=== PATIENT | male | born 1970 | race Caucasian/White ===

== ENCOUNTER 2017-08-30 09:21 | Inpatient (IN) | payer SELFPAY ==
[2017-08-30] MEDS ORDERED: Zolpidem Tartrate 5 MG TAB PO PRN (09:38)
[2017-08-30] MEDS ORDERED: Loperamide HCl 2 MG CAP PO PRN (09:38)
[2017-08-30] MEDS ORDERED: hydrALAZINE 20 MG/ML VIAL SLOW IVP PRN (09:38)
[2017-08-30] MEDS ORDERED: Milk Of Magnesia 30 ML UDCUP PO PRN (09:38)
[2017-08-30] MEDS ORDERED: Eucerin (Mineral Oil/Petrolatum,White) 30 gm Jar TOP PRN (09:38)
[2017-08-30] MEDS ORDERED: Sodium Chloride 0.65% Nasal 44 ML BOT EA NARE PRN (09:38)
[2017-08-30] MEDS ORDERED: Chloraseptic Spray 180 ml Bottle PO PRN (09:38)
[2017-08-30] MEDS ORDERED: Senokot 8.6 MG TAB PO PRN (09:38)
[2017-08-30] MEDS ORDERED: Diabetic Tussin 200 MG/10 ML UDCUP PO PRN (09:38)
[2017-08-30] MEDS ORDERED: Acetaminophen 325 MG TAB PO PRN (09:38)
[2017-08-30] MEDS ORDERED: Artificial Tears 18 DROP/0.9 ML EA EYE PRN (09:38)
[2017-08-30] MEDS ORDERED: Loratadine 10 MG TAB PO PRN (09:38)
[2017-08-30 09:45] VITALS: BMI 18.7
[2017-08-30] MEDS: Morphine 4 MG/ML VIAL SLOW IVP PRN ×5 (10:18→23:06)
[2017-08-30] MEDS: Sodium Chloride 0.9% 1,000 ML IV SCH ×2 (10:19→16:50)
[2017-08-30] MEDS ORDERED: Enoxaparin Sodium 40 MG/0.4 ML SYRINGE SC SCH (11:00)
[2017-08-30] MEDS ORDERED: Famotidine/PF 20 mg/2ml Vial SLOW IVP SCH (11:00)
[2017-08-30] MEDS: Ondansetron HCl/PF 4 MG/2 ML Vial IVP PRN ×2 (13:33→19:53)
--- NOTE | 2017-08-30 13:50 | HP ---
PRIMARY CARE PHYSICIAN: Dr. Berlin Cooper REASON FOR ADMISSION: Acute pancreatitis. HISTORY OF PRESENT ILLNESS: A 47-year-old male who has a history of alcoholism who was initially evaluated at [facility] for abdominal pain which was in the epigastric region radiating to back, aggravated after food, associated with nausea and vomiting. The patient reports that he has history of alcoholism. He drinks alcohol every day. He had several times pancreatitis in the past requiring admissions in different hospital. His most recent hospitalization was at [facility] about 2 weeks ago and per patient he stayed there for 1 week. He was having pain on the day of discharge, but despite that they discharged him home. He was discharged to inpatient rehabilitation for alcohol program. The patient was not drinking alcohol for about 2 weeks and despite that after eating his abdominal pain was getting worse and that is why he was locally evaluated at [facility]. At [facility], routine blood tests showed leukocytosis and elevated amylase and lipase. The patient's chest x-ray was normal. The patient was directly admitted from [facility] to our hospital for further treatment. REVIEW OF SYSTEMS: The following complete review of systems was negative, unless otherwise mentioned in the HPI or below: Constitutional: Weight loss or gain, ability to conduct usual activities. Skin: Rash, itching. Eyes: Double vision, pain. ENT/Mouth: Nose bleeding, neck stiffness, pain, tenderness. Cardiovascular: Palpitations, dyspnea on exertion, orthopnea. Respiratory: Shortness of breath, wheezing, cough, hemoptysis, fever or night sweats. Gastrointestinal: Poor appetite, abdominal pain, heartburn, nausea, vomiting, constipation, or diarrhea. Genitourinary: Urgency, frequency, dysuria, nocturia. Musculoskeletal: Pain, swelling. Neurologic/Psychiatric: Anxiety, depression. Allergy/Immunologic: Skin rash, bleeding tendency. Please see my HPI for pertinent positives and negatives. All other review of systems were reviewed and negative except as mentioned in the HPI. PAST MEDICAL HISTORY: History of chronic pancreatitis, multiple episodes of pancreatitis required multiple hospitalizations in the past, alcoholism. PAST SURGICAL HISTORY: Left wrist fusion. PAST PSYCHIATRIC HISTORY: Reviewed and negative. SOCIAL HISTORY: The patient has a history of alcoholism, currently he was in alcohol rehabilitation program. He did not drink alcohol for the last 2 weeks, but otherwise he used to drink almost every day, variable amount. He denies any smoking. He denies any other illicit drug abuse. FAMILY HISTORY: No strong family history of premature coronary artery disease, stroke or cancer. ALLERGIES: No known drug allergies. CURRENT HOME MEDICATIONS: The patient does not have any prescribed or non- prescribed medication with him at this point. EMERGENCY ROOM COURSE: The patient was given morphine 6 mg, Toradol 30 mg, Zofran 8 mg at [facility]. PHYSICAL EXAMINATION: VITAL SIGNS: Currently, blood pressure 110/83, pulse 94, respiratory rate 20, temperature 97.0, saturation 100% on room air, weight 54.4 kilograms. GENERAL: The patient is currently alert, awake, no obvious acute distress. HEENT: Head is normocephalic, atraumatic. Eyes: Pupils round, reactive to light. Extraocular muscle intact. ENT: Oropharynx within normal limits. Moist mucous membranes. No oral lesions. No pharyngeal erythema, no exudates. NECK: Supple, no JVD, no thyromegaly, no carotid bruit, no jugular venous distention. LUNGS: Clear to auscultation without any rhonchi or rales. CARDIAC: S1, S2 regular. No murmur, no gallop, no rub. ABDOMEN: Epigastric tenderness, no organomegaly, no mass, no suprapubic tenderness. BACK: Unremarkable, no CVA tenderness. EXTREMITIES: Upper extremity passive movement of all joints are normal. Lower extremities: No edema. Good peripheral pulsation. SKIN: No skin rash. HEMATOLOGICAL: No lymphadenopathy. PSYCHIATRIC: Normal affect. NEUROLOGIC: Nonfocal examination. SIGNIFICANT LABS: Chest x-ray based on my review, no acute cardiopulmonary process. CBC: WBC 14.5, hemoglobin 13.8, platelet 511, MCV 101. BMP; sodium 139, potassium 4.3, chloride 103, carbon dioxide 23, anion gap 17, BUN 10, creatinine 0.76, glucose 110, calcium 9.1. LFTs: AST 15, ALT 9, alkaline phosphatase 61, albumin 3.7. Lipase 2539. Amylase 1219. Urinalysis unremarkable, though bacteria plus, bilirubin small, and protein 30. ASSESSMENT AND PLAN: 1. Acute alcoholic pancreatitis. At this point, the patient has elevated amylase and lipase, and abdominal pain. The patient recently was hospitalized at [facility] and he was treated for acute pancreatitis there. Now, his symptoms getting worse with food each time. I am suspecting that this patient might have underlying chronic pancreatitis. We will get CT of the abdomen and pelvis with contrast for further evaluation and will check CRP. We will keep him n.p.o. and continue with IV fluid. We will control his pain with morphine 4 mg every 3 hours. We will check amylase and lipase, phosphorus, magnesium tomorrow. Incentive spirometry advised. Upon improvement we will start clear liquid diet and advance diet as tolerated. This patient may need a pancreatic enzyme supplements in case if he has chronic pancreatitis. 2. Macrocytic anemia due to alcoholism. The patient will be given folic acid, vitamin B12 and thiamine therapy while in hospital. 3. History of alcoholism. Currently the patient is on alcohol rehabilitation program, and he has not drink alcohol for 2 weeks. I counseled him to continue not to drink alcohol any more. 4. Deep venous thrombosis prophylaxis. Lovenox 40 mg subcutaneously daily. 5. Gastrointestinal prophylaxis. Pepcid 20 mg IV b.i.d. 6. Code status: The patient is FULL CODE. The patient does not have any so surrogate decision maker. DISPOSITION PLAN: Based on clinical course. We are expecting patient's stay in hospital more than 2 midnights. Plan of care discussed with the patient in detail. ASHLEYD
--- NOTE | 2017-08-30 17:12 | CT ---
CT OF THE ABDOMEN AND PELVIS WITH IV CONTRAST 08/30/17 INDICATION: History of pancreatitis. COMPARISON: CT thorax dated 02/29/12. FINDINGS: Lung bases are clear. There is marked wall thickening and surrounding inflammatory stranding involving the duodenum and irby creatic head. There is a 1.6 cm hypodense mass within the pancreatic head. An additional hypodense m ass is seen within the pancreatic tail measuring 1.7 cm. There is inflammatory stranding surrounding the pancreas. The majority of the pancreatic parenchyma does enhance. There is a partial filling defect seen within the main portal vein extending to the bifurcation. Ther e is occlusive thrombus seen within the anterior division of the right portal vein with a mosaic type perfusion anomaly involving the anterior aspect of the right hepatic lobe. Small area of hypodensity seen adjacent to the falciform ligament suspicious for fatty infiltration. There is wall thickening and pericolonic inflammatory stranding involving the hepatic flexure and jessie cending colon. There is fluid present within Pierce's pouch and along the right pericolonic gutter likely related to the patient's acute pancreatitis. There is also fluid extending cephalad from the p ancreatic head into the gastrohepatic ligament best seen on image 21 of series 2. No drainable fluid collection is grossly evident. The kidneys demonstrate normal symmetric enhancement. There is a small cyst involving the inferior po le left kidney. There are calcified granuloma within the spleen. There are mild vascular calcificati ons involving the abdominal aorta. There is a small amount of free fluid in the pelvis. There are a few scattered diverticula involving the colon without evidence of active diverticulitis. There is scattered degenerative and osteoarthritic change. 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 IMPRESSION: 1. Findings suspicious for acute pancreatitis with hypodense lesions seen within the pancreatic head and tail suspicious for possible pseudocysts. Followup is recommended. There is fluid seen withi n the gastrohepatic ligament as well as within Pierce's pouch and right pericolonic gutter which is likely reactive in nature. 2. There is partially occlusive thrombus seen within the main portal vein with a more occlusive clot seen within the anterior division of the right portal vein. Findings were called to Dr. Desai at 4:05 p.m., on 08/30/17. 3. Findings of prior granulomatous disease. 4. Small left renal cyst. 5. Colonic diverticulosis. Code CR POS: [facility]
[2017-08-30] MEDS ORDERED: ISOVUE-370 76%-LOCM 1 ML ONE (17:32)
[2017-08-30] MEDS: Famotidine/PF 20 mg/2ml Vial SLOW IVP SCH (19:53)
[2017-08-31] MEDS: Morphine 4 MG/ML VIAL SLOW IVP PRN ×7 (02:10→21:25)
[2017-08-31] MEDS: Sodium Chloride 0.9% 1,000 ML IV SCH (02:11)
[2017-08-31 06:42] LABS: #Basophils 0.1 thou/uL (0.0-0.2); #Eosinphils 1.6 thou/uL (0.0-0.7); #Lymphocytes 1.5 thou/uL (1.20-3.40); #Neutrophils 7.1 thou/uL (1.40-6.50); %Basophils 0.5 % (0.0-1.0); %Eosinophils 14.2 % (0.0-10.0); %Monocytes 8.9 % (0.0-10.0); %Neutrophils 63.4 % (42.0-75.0); Hemoglobin 11.7 g/dL (14.0-18.0); Mean Corpuscular HGB CONC 31.2 g/dL (32.0-36.0); Mean Corpuscular Hemoglobin 32.4 pg (27.0-31.0); Mean Platelet Volume 7.1 fL (7.4-10.4); Platelet Count 356 thou/uL (130-400); RBC Distribution Width 14.5 % (11.5-14.5); Red Blood Cell (RBC) Count 3.59 mill/uL (4.70-6.10); White Blood Cell (WBC) Count 11.1 thou/uL (4.8-10.8)
[2017-08-31 06:52] LABS: ALT (SGPT) 7 U/L (8-55); AST (SGOT) 15 U/L (5-34); Albumin 2.7 g/dL (3.5-5.0); Alkaline Phosphatase 49 U/L (40-150); Anion Gap 17 mmol/L (10-20); BUN (Urea Nitrogen) 10 mg/dL (8.9-20.6); Bilirubin, Total 0.5 mg/dL (0.2-1.2); CRP (Inflammatory) 5.35 mg/dL (= or < 0.5); Calc. Creatinine Clearance 99 mL/min (70-130); Calcium 8.4 mg/dL (7.8-10.44); Carbon Dioxide 21 mmol/L (22-29); Cardiac Risk 7.6 (Less than 4.5); Chloride 107 mmol/L (98-107); Cholesterol 91 mg/dl (< 200 Desired); Estimated GFR-MDRD Greater than 90; Globulin 2.9 g/dL (2.4-3.5); HDL Cholesterol 12 mg/dL (>60 Neg Risk); LDL Cholesterol, Calculated 61 mg/dL; Lipase 307 U/L (8-78); Magnesium 1.7 mg/dL (1.6-2.6); Phosphorus 5.2 mg/dL (2.3-4.7); Potassium 4.2 mmol/L (3.5-5.1); Protein, Total 5.6 g/dL (6.0-8.3); Sodium 141 mmol/L (136-145); Triglycerides 91 mg/dL (Less than 150)
[2017-08-31 06:55] LABS: Glucose 53 mg/dL (70-105)
[2017-08-31] MEDS: Multivitamin W/ Minerals 1 TAB PO SCH (08:33)
[2017-08-31] MEDS: Cyanocobalamin (Vitamin B-12) 1,000 MCG TAB PO SCH (08:33)
[2017-08-31] MEDS: Folic Acid 1 MG TAB PO SCH (08:34)
[2017-08-31] MEDS: Famotidine/PF 20 mg/2ml Vial SLOW IVP SCH ×2 (08:34→20:01)
[2017-08-31] MEDS ORDERED: Enoxaparin Sodium 40 MG/0.4 ML SYRINGE SC SCH (09:00)
[2017-08-31] MEDS: Dextrose 5 % And 0.9 % NaCl 1,000 ML IV SCH ×2 (09:49→19:14)
--- NOTE | 2017-08-31 10:08 | PDOC.PN ---
- Subjective Encounter Start Date: 08/31/17 Encounter Start Time: 07:05 -: old records requested/rev pt has abdominal pain, no vomiting, no fever Patient seen and examined. No new complaints. No overnight events - Objective Resuscitation Status: Resuscitation Status FULL:Full Resuscitation MAR Reviewed: Yes Vital Signs & Weight: Vital Signs (12 hours) Temp Pulse Resp BP BP Pulse Ox 08/31/17 08:04 98.7 F 73 20 110/74 96 08/31/17 08:00 98.7 F 73 20 96 08/31/17 04:00 98.6 F 71 20 95/63 97 08/31/17 00:00 98.7 F 75 20 109/71 97 Weight Admit Weight 123 lb 3.2 oz Weight 123 lb 3.2 oz I&O: 08/30/17 08/31/17 09/01/17 06:59 06:59 06:59 Intake Total 1000 Output Total 600 Balance 400 Result Diagrams: 08/31/17 05:19 08/31/17 05:19 Radiology Reviewed by me: Yes (CT abdomen) Phys Exam - Physical Examination Constitutional: NAD HEENT: PERRLA, moist MMs, sclera anicteric Neck: no JVD, supple Respiratory: no wheezing, no rales, no rhonchi Cardiovascular: RRR, no significant murmur, no rub Gastrointestinal: soft, no distention, positive bowel sounds epigastric abdominal pain Musculoskeletal: no edema, pulses present Neurological: non-focal, normal sensation, moves all 4 limbs Lymphatic: no nodes Psychiatric: normal affect, A&O x 3 Skin: no rash, normal turgor Dx/Plan (1) Acute alcoholic pancreatitis Code(s): K85.20 - ALCOHOL INDUCED ACUTE PANCREATITIS WITHOUT NECROSIS OR INFCT Status: Acute (2) Portal vein thrombosis Code(s): I81 - PORTAL VEIN THROMBOSIS Status: Acute (3) Alcohol abuse Code(s): F10.10 - ALCOHOL ABUSE, UNCOMPLICATED Status: Chronic (4) Macrocytic anemia Code(s): D53.9 - NUTRITIONAL ANEMIA, UNSPECIFIED Status: Chronic - Plan cont current plan of care * will consult GI * Change IVF to Dex with NS * continue narcotics for pain control * will repeat labs tomorrow * will defer anticoagulation decision for PVT, to GI * medication reviewed as below * symptomatic treatment. Review of Systems - Review of Systems Constitutional: negative: fever, chills, sweats, weakness, malaise, other ENT: negative: Ear Pain, Ear Discharge, Nose Pain, Nose Discharge, Nose Congestion, Mouth Pain, Mouth Swelling, Throat Pain, Throat Swelling, Other Respiratory: negative: Cough, Dry, Shortness of Breath, Hemoptysis, SOB with Excertion, Pleuritic Pain, Sputum, Wheezing Cardiovascular: negative: chest pain, palpitations, orthopnea, paroxysmal nocturnal dyspnea, edema, light headedness, other Gastrointestinal: Abdominal Pain. negative: Nausea, Vomiting, Diarrhea, Constipation, Melena, Hematochezia, Other Genitourinary: negative: Dysuria, Frequency, Incontinence, Hematuria, Retention , Other Musculoskeletal: negative: Neck Pain, Shoulder Pain, Arm Pain, Back Pain, Hand Pain, Leg Pain, Foot Pain, Other Skin: negative: Rash, Lesions, Blue, Bruising, Other - Medications/Allergies Allergies/Adverse Reactions: Allergies Allergy/AdvReac Type Severity Reaction Status Date / Time No Known Allergies Allergy Unverified 08/30/17 09:46 Medications: Current Medications Acetaminophen (Tylenol) 650 mg PO Q4H PRN PRN Reason: Headache/Fever or Pain Hydrocodone Bitart/Acetaminophen ([place] 10/325) 1 tab PO Q4H PRN PRN Reason: Moderate Pain (4-6) Al Hydroxide/Mg Hydroxide (Maalox) 30 ml PO Q6H PRN PRN Reason: Heartburn or Indigestion Albuterol/Ipratropium (Duoneb) 3 ml NEB [id number] PRN PRN Reason: SOB &/or Wheezing Artificial Tears (Tears Naturale) 0 drop EA EYE PRN PRN PRN Reason: Dry Eyes Cyanocobalamin (Vitamin B-12) 1,000 mcg PO DAILY [facility] Last Admin: 08/31/17 08:33 Dose: 1,000 mcg Enoxaparin Sodium (Lovenox) 40 mg SC 0900 [facility] Last Admin: 08/31/17 08:34 Dose: 40 mg Famotidine (Pepcid) 20 mg SLOW IVP Q12HR [facility] Last Admin: 08/31/17 08:34 Dose: 20 mg Folic Acid (Folvite) 1 mg PO DAILY [facility] Last Admin: 08/31/17 08:34 Dose: 1 mg Guaifenesin (Robitussin Sf) 200 mg PO Q4H PRN PRN Reason: Cough Hydralazine HCl (Apresoline) 10 mg SLOW IVP Q4H PRN PRN Reason: Systolic BP > 180 Dextrose/Sodium Chloride (D5 0.9% Ns) 1,000 mls @ 125 mls/hr IV .Q8H [facility] Last Admin: 08/31/17 09:49 Dose: 1,000 mls Iron/Minerals/Multivitamins (Theragran M) 1 tab PO DAILY [facility] Last Admin: 08/31/17 08:33 Dose: 1 tab Loperamide HCl (Imodium) 2 mg PO PRN PRN PRN Reason: Diarrhea/Loose Stools Loratadine (Claritin) 10 mg PO DAILYPRN PRN PRN Reason: Sinus Symptoms Magnesium Hydroxide (Milk Of Magnesium) 30 ml PO DAILYPRN PRN PRN Reason: Constipation Mineral Oil/White Petrolatum (Eucerin Cream) 0 gm TOP BIDPRN PRN PRN Reason: Dry Skin Morphine Sulfate (Morphine) 4 mg SLOW IVP Q3H PRN PRN Reason: Pain Last Admin: 08/31/17 08:24 Dose: 4 mg Ondansetron HCl (Zofran Odt) 4 mg PO Q6H PRN PRN Reason: Nausea/Vomiting Ondansetron HCl (Zofran) 4 mg IVP Q6H PRN PRN Reason: Nausea/Vomiting Last Admin: 08/30/17 19:53 Dose: 4 mg Phenol (Chloraseptic [place] 180 Ml Bot) 0 ml PO PRN PRN PRN Reason: Sore Throat Senna (Senokot) 2 tab PO HSPRN PRN PRN Reason: Constipation Sodium Chloride ([place] Nasal [place] 0.65%) 0 ml EA NARE QIDPRN PRN PRN Reason: Nasal Congestion Thiamine HCl (Thiamine) 100 mg PO DAILY [facility] Last Admin: 08/31/17 08:34 Dose: 100 mg Zolpidem Tartrate (Ambien) 5 mg PO HSPRN PRN PRN Reason: Insomnia
[2017-08-31] MEDS: HYDROcodone/Acetaminophen 10/325 mg Tablet PO PRN ×2 (10:24→15:36)
[2017-08-31] MEDS: Enoxaparin Sodium 40 MG/0.4 ML SYRINGE SC SCH (20:01)
[2017-09-01] MEDS: Morphine 5 mg/5 ml in 0.9% NaCl/PF SYRINGE SLOW IVP PRN ×6 (00:38→16:46)
[2017-09-01] MEDS: Dextrose 5 % And 0.9 % NaCl 1,000 ML IV SCH ×2 (00:39→03:42)
[2017-09-01] MEDS: HYDROcodone/Acetaminophen 10/325 mg Tablet PO PRN ×5 (01:59→22:38)
[2017-09-01 05:46] LABS: INR-International Normal Ratio 1.2; Prothrombin Time 15.2 SEC (12.0-14.7)
[2017-09-01 05:47] LABS: PTT 40.7 SEC (22.9-36.1)
[2017-09-01 05:48] LABS: #Basophils 0.1 thou/uL (0.0-0.2); #Eosinphils 1.6 thou/uL (0.0-0.7); #Lymphocytes 1.9 thou/uL (1.20-3.40); #Neutrophils 3.4 thou/uL (1.40-6.50); %Eosinophils 19.7 % (0.0-10.0); %Lymphocytes 23.9 % (21.0-51.0); %Monocytes 13.1 % (0.0-10.0); %Neutrophils 42.3 % (42.0-75.0); Hemoglobin 10.4 g/dL (14.0-18.0); Mean Corpuscular HGB CONC 30.6 g/dL (32.0-36.0); Mean Corpuscular Hemoglobin 31.9 pg (27.0-31.0); Mean Platelet Volume 7.2 fL (7.4-10.4); Platelet Count 336 thou/uL (130-400); RBC Distribution Width 14.4 % (11.5-14.5); Red Blood Cell (RBC) Count 3.26 mill/uL (4.70-6.10)
--- NOTE | 2017-09-01 06:32 | CON ---
DATE OF CONSULTATION: 08/31/2017 REASON FOR CONSULTATION: Pancreatitis. HISTORY OF PRESENT ILLNESS: Mr. Sims is a 47-year-old gentleman who has had pancreatitis for some time, [facility] for alcohol-related irby creatitis. The last time I saw him was last year in April of 2017. The patient notes that he re cently went in with abdominal pain to [facility], it was his first visit there a few weeks ago, re lated to drinking and pancreatitis. He ultimately was treated medically and reports that he has calm ed down and he was discharged to an outpatient facility in [place] to help him stop drinking. H e has done well there for a few weeks, but just was slowly building up pain and it was trying to toug h it out to see if he just did not drink, it would get better, but it did not and he ultimately went to the emergency room, there that was in [place] and they probably transferred him over here as he had elevated lipase again. His pain was in the upper abdomen, dull, achy and constant. It would be worse if he ate or drank. There was no hematemesis, melena, hematochezia, any fever or chills. His lipase was over 1000. His LFTs were okay. He was not drinking at all. He had leukocytosis, wili rly significant and also a CAT scan was performed in this admission that showed some changes of pseud ocyst in the tail of pancreas, head of the pancreas, which are really unchanged from his scan in [facility] emb and reviewing those with the radiologist from [facility]. There is some fluid in the gastrohepati c ligament, which is new, which measured about 5 cm and there was a new clot in the portal vein and r ight portal system that was new, not present on the CAT scan from 04/2017 at the [facility]. Presently, the patient is feeling a little bit better. His pain is more controlled. De nies fever. PAST MEDICAL HISTORY: 1. Acute on chronic pancreatitis secondary to alcohol. 2. Alcoholism, for which he has recently entered rehabilitation facility outpatient, is a 12-month p rogram. PAST SURGICAL HISTORY: Notable for left wrist fusion. SOCIAL HISTORY: The patient has a history of alcoholism and has not drank in about 2 weeks. He does not smoke. He was a heavy smoker and stopped about 6 months ago. FAMILY HISTORY: Negative for pancreatic disease. ALLERGIES: None known. MEDICATIONS AT HOME: None. REVIEW OF SYSTEMS: Negative for melena, hematochezia, hematemesis, fever, chills, dysphagia, odynoph agia, weight loss. PRESENT MEDICATIONS: Tylenol p.r.n., Maalox p.r.n., DuoNeb p.r.n., vitamin B12, D5 normal saline at 125 an hour, Lovenox 40 subcu daily, Pepcid 20 mg IV q.12 hours, folic acid p.r.n., Apresoline p.r.n. , Mcdonald p.r.n., multivitamin, Claritin, milk of magnesia p.r.n., morphine, p.r.n., Zofran p.r.n., Amb ien p.r.n., thiamine 100 mg daily. PHYSICAL EXAMINATION: GENERAL: Patient is resting in bed. He is in no distress. He is thin. He is alert and oriented. He shows no signs of shakiness or anxiety. SKIN: Warm and dry. VITAL SIGNS: Temperature is 97, pulse 68, blood pressure 105/69. LUNGS: Clear. CARDIOVASCULAR: Regular rate and rhythm without clicks or murmurs. ABDOMEN: Soft, nontender, no rebound or guarding. Bowel sounds are positive. No bruits. EXTREMITIES: No clubbing, cyanosis or edema. LABORATORY AND X-RAY FINDINGS: White count 11.1, hemoglobin 11.7 down from 13.8 after hydration, MCV 104, platelet count 356. Chemistries are normal except for a glucose drop to 53, and his fluid was changed to D5, phosphorus 5.2, magnesium 1.7, AST and ALT of 15 and 7. C-reactive protein was 5.35. Albumin was 2.7 and triglycerides 91. Amylase and lipase were 1219 and 2539. On the , today, hi s lipase is 307. CT scan images were reviewed and reviewed with Radiology. There is some inflammato ry stranding of the duodenal area in the pancreatic head, a 1.6 cm hypodense lesion in the pancreatic head consistent with pseudocyst seen on the images from April and is unchanged. There is one in the tail as well, 1.7 cm, about the same. There is a fluid collection in the gastrohepatic ligament . There is also a clot at the main portal vein seen in the bifurcation in the right anterior portal vein. Pancreatic duct is prominent. The pancreas is enhancing. ASSESSMENT: 1. Acute on chronic pancreatitis. 2. 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 3. New thrombosis seen in the main portal vein and right portal vein with some inflammatory changes in the right upper quadrant. I think now that he is in the stable environment, I think he is in a go od place to be on anticoagulation for this so we can get this clot to go away, probably related to ac [place] pancreatitis. PLAN: 1. We will consult Hematology for recommendations, on oral anticoagulation; in the meantime, we will start 40 subcutaneous q.12 hours. 2. I think he will need full anticoagulation. 3. Continue IV fluids and n.p.o. status, repeat lipase in the morning. 4. Obtain previous CAT scan from [facility] if one was done to see if this clot is new as of 2 we eks ago. 5. Continue supportive care.
[2017-09-01 07:13] LABS: ALT (SGPT) Less than 7 U/L (8-55); AST (SGOT) 13 U/L (5-34); Albumin 2.4 g/dL (3.5-5.0); Alkaline Phosphatase 44 U/L (40-150); Anion Gap 10 mmol/L (10-20); BUN (Urea Nitrogen) 9 mg/dL (8.9-20.6); Bilirubin, Total Less than 0.2 mg/dL (0.2-1.2); Calc. Creatinine Clearance 99 mL/min (70-130); Calcium 7.9 mg/dL (7.8-10.44); Carbon Dioxide 27 mmol/L (22-29); Chloride 105 mmol/L (98-107); Estimated GFR-MDRD Greater than 90; Globulin 2.6 g/dL (2.4-3.5); Glucose 87 mg/dL (70-105); Lipase 290 U/L (8-78); Potassium 3.3 mmol/L (3.5-5.1); Sodium 139 mmol/L (136-145)
[2017-09-01] MEDS: Famotidine/PF 20 mg/2ml Vial SLOW IVP SCH ×2 (08:02→20:36)
[2017-09-01] MEDS: Multivitamin W/ Minerals 1 TAB PO SCH (08:02)
[2017-09-01] MEDS: Folic Acid 1 MG TAB PO SCH (08:02)
[2017-09-01] MEDS: Enoxaparin Sodium 40 MG/0.4 ML SYRINGE SC SCH ×2 (08:02→20:35)
[2017-09-01] MEDS: Cyanocobalamin (Vitamin B-12) 1,000 MCG TAB PO SCH (08:02)
[2017-09-01] MEDS: D5 1/4 NS 1,000 ML IV SCH ×3 (12:01→20:35)
--- NOTE | 2017-09-01 14:27 | PRG ---
DATE OF SERVICE: 09/01/2017 Mr. Sims is feeling better. He wants to eat. He was seen by Hematology yesterday. I did talk wit h them about these issues of his clot. MEDICATIONS: Tylenol, hydrocodone, DuoNeb, , Lovenox 40 subcu q.12h, Pepcid, folic acid. PHYSICAL EXAMINATION: VITAL SIGNS: Temperature 98, pulse 85, blood pressure 93/61. LUNGS: Clear. HEART: Regular rate and rhythm. ABDOMEN: Soft, nontender. LABORATORY STUDIES: White count 8, hemoglobin 10, MCV 105, platelet count 236. Sodium 139, potassiu m 3.3, bilirubin 0.2, AST and ALT are 7 and 44, albumin is 2.4, protein 5, lipase 290. ASSESSMENT: 1. Chronic pancreatitis with some pseudocyst changes. Will start liquids. 2. Portal vein thrombosis, suspected to be new awaiting records from [facility]. Recommend full dose anticoagulation with Lovenox 1 mg/kg q.12h. We will defer to Internal Medicine and Hematology. Ultimately, if he remains stable with that we can a transfer to oral therapy when he goes home.
--- NOTE | 2017-09-01 20:19 | CON ---
DATE OF CONSULTATION: 08/31/2017 REASON FOR CONSULTATION: Portal vein thrombosis. HISTORY OF PRESENT ILLNESS: Mr. Sims is a pleasant 47-year-old gentleman with a history of alcohol abuse and chronic pancreatitis. He was recently admitted to the hospital at [facility] for acute pancreatitis. He had abdominal discomfort which continued after discharge. He has a 30 year history of alcoholism, stopped drinking on admission to [facility]. After leaving [facility], he went into a addiction rehabilitation facility in [place]. His abdominal pain worsened so he presented to the [place] ER for evaluation. In [place], he had an abdominal pelvis CT performed which showed wall thickening and inflammatory stranding around the duodenum and pancreatic head. There was 1.6 cm hyperdense mass within the pancreatic head consistent with a cyst. There was another mass on the pancreatic tail, measuring 1.7 cm. He was diagnosed with acute pancreatitis. There was a partially occlusive thrombus seen in the main portal vein with a more occlusive clot in the anterior division of the right portal vein. He had a prior granulomatous disease and he had a colonic diverticulitis. He was transferred to this facility and admitted for acute on chronic pancreatitis. The patient has been sober for approximately 4 weeks. He has no history of thrombotic events in the past. No family history of blood disorders or clotting issues. He does complain of diffuse abdominal pain at this time and he remains n.p.o. PAST MEDICAL HISTORY: 1. Alcohol abuse. 2. Chronic pancreatitis. PAST SURGICAL HISTORY: Left wrist fusion. ALLERGIES: No known drug allergies. HOME MEDICATIONS: None. FAMILY HISTORY: No history of clotting disorder. SOCIAL HISTORY: Single, currently living in a rehabilitation, quit smoking and drinking 4 weeks ago. Denies any illicit drug use. REVIEW OF SYSTEMS: Constitutional: No fever, chills, night sweats. Eyes: No blurred or double vision. ENT: No pain, hoarseness, sore throat, or dysphagia. Cardiovascular: No chest pain, palpitations or syncope. Respiratory: No shortness of breath , dyspnea on exertion or orthopnea. Gastrointestinal: Positive for nausea and abdominal pain. No diarrhea or constipation. Genitourinary: No hematuria or dysuria. Musculoskeletal: No joint or back pain. Skin: No rash or pruritus. Hematological: No bleeding. Neurologic: No weakness, headache, numbness, tingling or seizure activity. Psychiatric: No anxiety or depression. PHYSICAL EXAMINATION: VITAL SIGNS: Temperature is 98.0, pulse is 77, respiratory rate 16, blood pressure is 95/62. He is 95% on room air. GENERAL: Well-developed, well-nourished male in no acute distress. HEENT: Normocephalic, atraumatic. Pupils equal and reactive to light. NECK: Supple. HEART: Regular rate and rhythm. LUNGS: Clear. ABDOMEN: Soft, nontender. There is no organomegaly. Bowel sounds are positive. EXTREMITIES: No clubbing, cyanosis or edema. SKIN: No rash. HEMATOLOGIC: No petechia or purpura. NEUROLOGICAL: Nonfocal. PSYCHIATRIC: The patient is alert and oriented and appropriate. PERTINENT LABORATORY AND X-RAYS: Current WBCs are 11.1, hemoglobin 11.7, hematocrit 37.4, platelet count 356,000. Neutrophils are 63%, 13% lymphocytes. PT is 15.2, INR is 1.2, PTT is 40.7. Sodium is 141, potassium 4.2, chloride 107, CO2 is 21, BUN is 10, creatinine 0.72, glucose is 53, calcium 8.4, phosphorus 5.2, magnesium 1.7, total bilirubin is 0.5, AST is 15, ALT 7, alkaline phosphatase is 49. C-reactive protein is 5.35. Serum total protein is 5.6, albumin 2.7, globulin 2.9, lipase is 307. Amylase was 1219. Urine showed 1+ bacteria. Radiology per HPI. ASSESSMENT: 1. Portal vein thrombosis. 2. Acute on chronic pancreatitis. 3. Alcohol abuse without cirrhosis. DISCUSSION: Case was discussed in detail with Dr. Carlin and Dr. Tam. Dr. Tam has seen the patient in the past. The patient does not have cirrhosis. It is unlikely the patient has esophageal varices. He has been started on Lovenox. The patient would be a candidate for Coumadin therapy as long as he remains sober. There is a question of his social situation as he wants to return to the rehabilitation facility but has no funding. We would recommend anticoagulation with Coumadin for 6 months and have case resource manager to set him up for routine INRs in the outpatient setting in [place]. The patient was informed that should he unfortunately began to drink again, he is at a very high risk for bleeding and injury. He admits that if he begins to drink again, he would not take the medicine anyway. Thank you for the consult. JASON
[2017-09-02] MEDS: HYDROcodone/Acetaminophen 10/325 mg Tablet PO PRN ×5 (02:54→20:22)
[2017-09-02] MEDS: D5 1/4 NS 1,000 ML IV SCH ×3 (05:28→20:23)
[2017-09-02] MEDS: Folic Acid 1 MG TAB PO SCH (07:46)
[2017-09-02] MEDS: Multivitamin W/ Minerals 1 TAB PO SCH (07:46)
[2017-09-02] MEDS: Cyanocobalamin (Vitamin B-12) 1,000 MCG TAB PO SCH (07:46)
[2017-09-02] MEDS: Enoxaparin Sodium 40 MG/0.4 ML SYRINGE SC SCH (07:47)
[2017-09-02] MEDS: Famotidine/PF 20 mg/2ml Vial SLOW IVP SCH (07:53)
[2017-09-02] MEDS: Warfarin Sodium 5 MG TAB PO SCH (15:03)
[2017-09-02] MEDS: Famotidine 20 MG TAB PO SCH (20:23)
[2017-09-02] MEDS: Enoxaparin Sodium 60 MG/0.6 ML SYRINGE SC SCH (20:23)
[2017-09-03] MEDS: D5 1/4 NS 1,000 ML IV SCH ×4 (00:08→20:58)
--- NOTE | 2017-09-03 00:40 | PRG ---
DATE OF SERVICE: 09/02/2017 SUBJECTIVE: Mr. Sims' pain is much better. He has moved from a liquid diet to soft diet. He is h aving no pain. PHYSICAL EXAMINATION: VITAL SIGNS: Temperature is 98, pulse 56, blood pressure 98-95/67. ABDOMEN: Soft, nontender. LABORATORY STUDIES: No blood work today except for lipase of 129, INR 1.2 on 09/01/2017. ASSESSMENT: 1. Pancreatitis, alcohol related. 2. 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 On the CAT scan here to the contrast on 08/30/2017, there is some early portal vein thrombosis. This is not seen on the previous CAT scan reports. I do not have the images to look at, but one at [facility] was done without any IV contrast that may have been missed. RECOMMENDATIONS: 1. Advance diet slowly. 2. Avoidance of alcohol. 3. When he is discharged, he is going to return to outpatient rehabilitation facility. 4. With regard to his portal vein thrombosis, this is subacute, likely related to inflammation of pa ncreatitis, I think it would be reasonable to anticoagulate him. There is no evidence of pseudoaneur ysm on CT and viewing Radiology. If it is feasible where he can be monitored with INRs in [facility] at the [facility] there, it would be reasonable for him to be treated for 6 months with Coumad in and that can be discontinued. I will be happy to see him back in the office in a few weeks after discharge. Obviously, these things may be arranged where he will have transportation from his rehabi litation facility to the lab and we will see if the social services assistant can see the place he is staying in, [place] can accommodate that. If they are able to accommodate that and he has not really have his Coumadin monitored, he should not be put on it.
[2017-09-03] MEDS: HYDROcodone/Acetaminophen 10/325 mg Tablet PO PRN ×5 (02:57→20:09)
[2017-09-03 05:50] LABS: Prothrombin Time 16.4 SEC (12.0-14.7)
[2017-09-03 05:51] LABS: INR-International Normal Ratio 1.3
[2017-09-03] MEDS: Famotidine 20 MG TAB PO SCH ×2 (08:23→20:09)
[2017-09-03] MEDS: Folic Acid 1 MG TAB PO SCH (08:23)
[2017-09-03] MEDS: Cyanocobalamin (Vitamin B-12) 1,000 MCG TAB PO SCH (08:23)
[2017-09-03] MEDS: Enoxaparin Sodium 60 MG/0.6 ML SYRINGE SC SCH ×2 (08:24→20:09)
[2017-09-03] MEDS: Multivitamin W/ Minerals 1 TAB PO SCH (08:24)
[2017-09-03] MEDS: Warfarin Sodium 5 MG TAB PO SCH (16:05)
--- NOTE | 2017-09-03 17:04 | PDOC.PN ---
- Subjective Encounter Start Date: 09/03/17 Encounter Start Time: 17:03 Subjective: seen and examined with no new complaint - Objective Resuscitation Status: Resuscitation Status FULL:Full Resuscitation Vital Signs & Weight: Vital Signs (12 hours) Temp Pulse Resp BP Pulse Ox 09/03/17 07:45 98.4 F 70 16 124/76 98 09/03/17 07:02 98.4 F 63 14 Weight Admit Weight 123 lb 3.2 oz Weight 123 lb 3.2 oz I&O: 09/02/17 09/03/17 09/04/17 06:59 06:59 06:59 Intake Total 1590 Balance 1590 Result Diagrams: 09/01/17 04:40 09/01/17 04:40 Phys Exam - Physical Examination Constitutional: NAD HEENT: PERRLA, moist MMs, sclera anicteric, TM's clear Neck: no nodes, no JVD, supple, full ROM Respiratory: no wheezing, no rales, no rhonchi, clear to auscultation bilateral Cardiovascular: RRR, no significant murmur, no rub Dx/Plan (1) Hepatic vein thrombosis Code(s): I82.0 - BUDD-CHIARI SYNDROME Status: Acute (2) Acute alcoholic pancreatitis Code(s): K85.20 - ALCOHOL INDUCED ACUTE PANCREATITIS WITHOUT NECROSIS OR INFCT Status: Acute (3) Portal vein thrombosis Code(s): I81 - PORTAL VEIN THROMBOSIS Status: Acute (4) Alcohol abuse Code(s): F10.10 - ALCOHOL ABUSE, UNCOMPLICATED Status: Chronic (5) Macrocytic anemia Code(s): D53.9 - NUTRITIONAL ANEMIA, UNSPECIFIED Status: Chronic - Plan PT/OT, delinquency prevention social worker Lovenox /coumadin --awaiting therapeutic INR -: Dispo planning * .
--- NOTE | 2017-09-03 22:58 | PRG ---
DATE OF SERVICE: 09/03/2017 SUBJECTIVE: Mr. Sims is tolerating diet, still a little bit of pain when he eats. PHYSICAL EXAMINATION: VITAL SIGNS: Temperature is 98, pulse 70, blood pressure 124/76. ABDOMEN: Soft, nontender. LABORATORY STUDIES: None today. ASSESSMENT: 1. Chronic pancreatitis related to alcohol abuse. 2. Acute and chronic pain, improving. 3. New portal vein thrombosis, on anticoagulation for this now, Lovenox 55 q.12, warfarin 5 at [facility]. INR today is 1.3. PLAN: I think when the patient receives anticoagulation, he can be discharged home with anticoagulat ion regimen and I would be happy to follow with regard to his pain and chronic pancreatitis. I will see him back in a couple of weeks. We would defer to Hematology for how long he should be on anticoa gulation, I am guessing probably 6 months, but we will defer to them for an opinion on that. I will be out this weekend. My partner, Dr. Schwartz, will be on-call if needed. Please do not hesitate to co ntact.
[2017-09-04] MEDS: HYDROcodone/Acetaminophen 10/325 mg Tablet PO PRN ×5 (04:16→20:07)
[2017-09-04 04:54] LABS: Hemoglobin 12.1 g/dL (14.0-18.0); Platelet Count 352 thou/uL (130-400)
[2017-09-04 04:56] LABS: INR-International Normal Ratio 1.4; Prothrombin Time 17.5 SEC (12.0-14.7)
[2017-09-04 05:12] LABS: Calc. Creatinine Clearance 90 mL/min (70-130); Estimated GFR-MDRD Greater than 90
[2017-09-04] MEDS: Cyanocobalamin (Vitamin B-12) 1,000 MCG TAB PO SCH (08:00)
[2017-09-04] MEDS: Multivitamin W/ Minerals 1 TAB PO SCH (08:00)
[2017-09-04] MEDS: Famotidine 20 MG TAB PO SCH ×2 (08:00→20:07)
[2017-09-04] MEDS: Folic Acid 1 MG TAB PO SCH (08:01)
[2017-09-04] MEDS: Enoxaparin Sodium 60 MG/0.6 ML SYRINGE SC SCH ×2 (08:01→20:06)
--- NOTE | 2017-09-04 11:54 | PDOC.PN ---
- Subjective Encounter Start Date: 09/04/17 Encounter Start Time: 11:53 Subjective: no new complaint - Objective Resuscitation Status: Resuscitation Status FULL:Full Resuscitation Vital Signs & Weight: Vital Signs (12 hours) Temp Pulse Resp BP Pulse Ox 09/04/17 08:10 98.4 F 73 20 113/74 97 09/04/17 08:00 98.4 F 73 20 97 Weight Admit Weight 123 lb 3.2 oz Weight 123 lb 3.2 oz Result Diagrams: 09/04/17 04:37 09/04/17 04:37 Phys Exam - Physical Examination Constitutional: NAD HEENT: PERRLA, moist MMs, sclera anicteric, TM's clear Neck: no nodes, no JVD, supple, full ROM Respiratory: no wheezing, no rales, no rhonchi, clear to auscultation bilateral Cardiovascular: RRR, no significant murmur, no rub Gastrointestinal: soft, non-tender, no distention, positive bowel sounds Musculoskeletal: no edema, pulses present Dx/Plan (1) Hepatic vein thrombosis Code(s): I82.0 - BUDD-CHIARI SYNDROME Status: Acute (2) Acute alcoholic pancreatitis Code(s): K85.20 - ALCOHOL INDUCED ACUTE PANCREATITIS WITHOUT NECROSIS OR INFCT Status: Acute (3) Portal vein thrombosis Code(s): I81 - PORTAL VEIN THROMBOSIS Status: Acute (4) Alcohol abuse Code(s): F10.10 - ALCOHOL ABUSE, UNCOMPLICATED Status: Chronic (5) Macrocytic anemia Code(s): D53.9 - NUTRITIONAL ANEMIA, UNSPECIFIED Status: Chronic - Plan PT/OT, home health care social worker On lovenox/coumadin--awaiting therapeutic INR -: D/c once therapeutic * .
[2017-09-04] MEDS: D5 1/4 NS 1,000 ML IV SCH ×3 (12:04→23:49)
[2017-09-04] MEDS: Warfarin Sodium 5 MG TAB PO SCH (16:07)
[2017-09-05] MEDS: HYDROcodone/Acetaminophen 10/325 mg Tablet PO PRN ×6 (01:22→23:11)
[2017-09-05 04:43] LABS: INR-International Normal Ratio 1.5; Prothrombin Time 18.4 SEC (12.0-14.7)
--- NOTE | 2017-09-05 07:55 | PDOC.PN ---
- Subjective Encounter Start Date: 09/05/17 Encounter Start Time: 07:54 Subjective: Seen and examined with no new cmplaint - Objective Resuscitation Status: Resuscitation Status FULL:Full Resuscitation Vital Signs & Weight: Vital Signs (12 hours) Temp Pulse Resp BP Pulse Ox 09/05/17 07:24 98 F 59 L 20 96/63 98 09/04/17 20:00 98.9 F 64 18 96 Weight Admit Weight 123 lb 3.2 oz Weight 123 lb 3.2 oz I&O: 09/04/17 09/05/17 09/06/17 06:59 06:59 06:59 Intake Total 900 Balance 900 Result Diagrams: 09/04/17 04:37 09/04/17 04:37 Phys Exam - Physical Examination Constitutional: NAD HEENT: PERRLA, moist MMs, sclera anicteric, TM's clear Neck: no nodes, no JVD, supple, full ROM Respiratory: no wheezing, no rales, no rhonchi, clear to auscultation bilateral Cardiovascular: RRR, no significant murmur, no rub Gastrointestinal: soft, non-tender, no distention, positive bowel sounds Dx/Plan (1) Hepatic vein thrombosis Code(s): I82.0 - BUDD-CHIARI SYNDROME Status: Acute (2) Acute alcoholic pancreatitis Code(s): K85.20 - ALCOHOL INDUCED ACUTE PANCREATITIS WITHOUT NECROSIS OR INFCT Status: Acute (3) Portal vein thrombosis Code(s): I81 - PORTAL VEIN THROMBOSIS Status: Acute (4) Alcohol abuse Code(s): F10.10 - ALCOHOL ABUSE, UNCOMPLICATED Status: Chronic (5) Macrocytic anemia Code(s): D53.9 - NUTRITIONAL ANEMIA, UNSPECIFIED Status: Chronic - Plan PT/OT, social media developer Continue Lovenox/coumadin -: D/c back to [facility] once INR therapeutic * .
[2017-09-05] MEDS: Folic Acid 1 MG TAB PO SCH (07:58)
[2017-09-05] MEDS: Famotidine 20 MG TAB PO SCH ×2 (07:59→20:14)
[2017-09-05] MEDS: Multivitamin W/ Minerals 1 TAB PO SCH (07:59)
[2017-09-05] MEDS: Cyanocobalamin (Vitamin B-12) 1,000 MCG TAB PO SCH (07:59)
[2017-09-05] MEDS: Enoxaparin Sodium 60 MG/0.6 ML SYRINGE SC SCH ×2 (08:01→20:14)
[2017-09-05] MEDS: D5 1/4 NS 1,000 ML IV SCH ×3 (11:38→23:06)
[2017-09-05] MEDS: Warfarin Sodium 5 MG TAB PO SCH (17:23)
[2017-09-06 05:00] LABS: Hemoglobin 12.6 g/dL (14.0-18.0); Platelet Count 342 thou/uL (130-400)
[2017-09-06 05:05] LABS: INR-International Normal Ratio 1.7; Prothrombin Time 20.4 SEC (12.0-14.7)
[2017-09-06 05:17] LABS: Calc. Creatinine Clearance 102 mL/min (70-130); Estimated GFR-MDRD Greater than 90
[2017-09-06] MEDS: Multivitamin W/ Minerals 1 TAB PO SCH (07:40)
[2017-09-06] MEDS: Folic Acid 1 MG TAB PO SCH (07:41)
[2017-09-06] MEDS: HYDROcodone/Acetaminophen 10/325 mg Tablet PO PRN ×4 (07:41→20:42)
[2017-09-06] MEDS: Cyanocobalamin (Vitamin B-12) 1,000 MCG TAB PO SCH (07:41)
[2017-09-06] MEDS: Famotidine 20 MG TAB PO SCH ×2 (07:41→20:42)
[2017-09-06] MEDS: D5 1/4 NS 1,000 ML IV SCH (07:44)
[2017-09-06] MEDS: Enoxaparin Sodium 60 MG/0.6 ML SYRINGE SC SCH ×2 (08:24→20:40)
--- NOTE | 2017-09-06 11:15 | PDOC.PN ---
- Subjective Encounter Start Date: 09/06/17 Encounter Start Time: 09:30 -: old records requested/rev Patient seen and examined. No new complaints. No overnight events has less abdominal pain - Objective Resuscitation Status: Resuscitation Status FULL:Full Resuscitation MAR Reviewed: Yes Vital Signs & Weight: Vital Signs (12 hours) Temp Pulse Resp BP Pulse Ox 09/06/17 07:52 98.1 F 66 16 108/73 100 09/06/17 07:48 98.7 F 69 18 Weight Admit Weight 123 lb 3.2 oz Weight 123 lb 3.2 oz I&O: 09/05/17 09/06/17 09/07/17 06:59 06:59 06:59 Intake Total 900 300 Balance 900 300 Result Diagrams: 09/06/17 04:16 09/06/17 04:16 Phys Exam - Physical Examination Constitutional: NAD HEENT: PERRLA, moist MMs, sclera anicteric Neck: no JVD, supple Respiratory: no wheezing, no rales, no rhonchi Cardiovascular: RRR, no significant murmur, no rub Gastrointestinal: soft, non-tender, no distention, positive bowel sounds Musculoskeletal: no edema, pulses present Neurological: non-focal, normal sensation, moves all 4 limbs Psychiatric: normal affect, A&O x 3 Skin: no rash, normal turgor Dx/Plan (1) Acute alcoholic pancreatitis Code(s): K85.20 - ALCOHOL INDUCED ACUTE PANCREATITIS WITHOUT NECROSIS OR INFCT Status: Acute (2) Portal vein thrombosis Code(s): I81 - PORTAL VEIN THROMBOSIS Status: Acute (3) Alcohol abuse Code(s): F10.10 - ALCOHOL ABUSE, UNCOMPLICATED Status: Chronic (4) Macrocytic anemia Code(s): D53.9 - NUTRITIONAL ANEMIA, UNSPECIFIED Status: Chronic - Plan cont current plan of care * add creon with food * DC IVF * await INR to be therapeutic * medication reviewed as below * symptomatic treatment * pain controlled * repeat labs tomorrow. Review of Systems - Review of Systems ENT: negative: Ear Pain, Ear Discharge, Nose Pain, Nose Discharge, Nose Congestion, Mouth Pain, Mouth Swelling, Throat Pain, Throat Swelling, Other Respiratory: negative: Cough, Dry, Shortness of Breath, Hemoptysis, SOB with Excertion, Pleuritic Pain, Sputum, Wheezing Cardiovascular: negative: chest pain, palpitations, orthopnea, paroxysmal nocturnal dyspnea, edema, light headedness, other Gastrointestinal: Abdominal Pain. negative: Nausea, Vomiting, Diarrhea, Constipation, Melena, Hematochezia, Other Genitourinary: negative: Dysuria, Frequency, Incontinence, Hematuria, Retention , Other Musculoskeletal: negative: Neck Pain, Shoulder Pain, Arm Pain, Back Pain, Hand Pain, Leg Pain, Foot Pain, Other Skin: negative: Rash, Lesions, Blue, Bruising, Other - Medications/Allergies Allergies/Adverse Reactions: Allergies Allergy/AdvReac Type Severity Reaction Status Date / Time No Known Allergies Allergy Unverified 08/30/17 09:46 Medications: Current Medications Acetaminophen (Tylenol) 650 mg PO Q4H PRN PRN Reason: Headache/Fever or Pain Hydrocodone Bitart/Acetaminophen ([place] 10/325) 1 tab PO Q4H PRN PRN Reason: Moderate Pain (4-6) Last Admin: 09/06/17 07:41 Dose: 1 tab Al Hydroxide/Mg Hydroxide (Maalox) 30 ml PO Q6H PRN PRN Reason: Heartburn or Indigestion Albuterol/Ipratropium (Duoneb) 3 ml NEB [id number] PRN PRN Reason: SOB &/or Wheezing Lipase/Protease/Amylase ([place] [id number]) 1 cap PO TID-WM [facility] Artificial Tears (Tears Naturale) 0 drop EA EYE PRN PRN PRN Reason: Dry Eyes Cyanocobalamin (Vitamin B-12) 1,000 mcg PO DAILY [facility] Last Admin: 09/06/17 07:41 Dose: 1,000 mcg Enoxaparin Sodium (Lovenox) 55 mg SC 0900,2100 [facility] Last Admin: 09/06/17 08:24 Dose: 55 mg Famotidine (Pepcid) 20 mg PO Q12HR [facility] Last Admin: 09/06/17 07:41 Dose: 20 mg Folic Acid (Folvite) 1 mg PO DAILY [facility] Last Admin: 09/06/17 07:41 Dose: 1 mg Guaifenesin (Robitussin Sf) 200 mg PO Q4H PRN PRN Reason: Cough Hydralazine HCl (Apresoline) 10 mg SLOW IVP Q4H PRN PRN Reason: Systolic BP > 180 Iron/Minerals/Multivitamins (Theragran M) 1 tab PO DAILY [facility] Last Admin: 09/06/17 07:40 Dose: 1 tab Loperamide HCl (Imodium) 2 mg PO PRN PRN PRN Reason: Diarrhea/Loose Stools Loratadine (Claritin) 10 mg PO DAILYPRN PRN PRN Reason: Sinus Symptoms Magnesium Hydroxide (Milk Of Magnesium) 30 ml PO DAILYPRN PRN PRN Reason: Constipation Mineral Oil/White Petrolatum (Eucerin Cream) 0 gm TOP BIDPRN PRN PRN Reason: Dry Skin Morphine Sulfate/Sodium Chloride (Morphine 0.9% Nacl/Pf 5 Mg/5 M) 4 mg SLOW IVP Q3H PRN PRN Reason: Pain 7-10 Last Admin: 09/01/17 16:46 Dose: 4 mg Ondansetron HCl (Zofran Odt) 4 mg PO Q6H PRN PRN Reason: Nausea/Vomiting Ondansetron HCl (Zofran) 4 mg IVP Q6H PRN PRN Reason: Nausea/Vomiting Last Admin: 08/30/17 19:53 Dose: 4 mg Phenol (Chloraseptic [place] 180 Ml Bot) 0 ml PO PRN PRN PRN Reason: Sore Throat Senna (Senokot) 2 tab PO HSPRN PRN PRN Reason: Constipation Sodium Chloride ([place] Nasal [place] 0.65%) 0 ml EA NARE QIDPRN PRN PRN Reason: Nasal Congestion Thiamine HCl (Thiamine) 100 mg PO DAILY [facility] Last Admin: 09/06/17 07:40 Dose: 100 mg Warfarin Sodium (Coumadin) 5 mg PO 1700 [facility] Last Admin: 09/05/17 17:23 Dose: 5 mg Zolpidem Tartrate (Ambien) 5 mg PO HSPRN PRN PRN Reason: Insomnia
[2017-09-06] MEDS: Pancrelipase DR 12000 1 CAP PO SCH ×2 (12:41→16:06)
[2017-09-06] MEDS: Warfarin Sodium 5 MG TAB PO SCH (18:03)
[2017-09-07 05:09] LABS: INR-International Normal Ratio 1.8; Prothrombin Time 21.1 SEC (12.0-14.7)
[2017-09-07] MEDS: HYDROcodone/Acetaminophen 10/325 mg Tablet PO PRN ×4 (05:23→18:11)
[2017-09-07 05:36] LABS: Anion Gap 12 mmol/L (10-20); BUN (Urea Nitrogen) 8 mg/dL (8.9-20.6); Calc. Creatinine Clearance 102 mL/min (70-130); Carbon Dioxide 27 mmol/L (22-29); Chloride 103 mmol/L (98-107); Estimated GFR-MDRD Greater than 90; Glucose 89 mg/dL (70-105); Lipase 223 U/L (8-78); Potassium 4.1 mmol/L (3.5-5.1); Sodium 138 mmol/L (136-145)
[2017-09-07] MEDS: Cyanocobalamin (Vitamin B-12) 1,000 MCG TAB PO SCH (08:19)
[2017-09-07] MEDS: Pancrelipase DR 12000 1 CAP PO SCH ×3 (08:19→19:56)
[2017-09-07] MEDS: Enoxaparin Sodium 60 MG/0.6 ML SYRINGE SC SCH ×2 (08:19→19:57)
[2017-09-07] MEDS: Famotidine 20 MG TAB PO SCH ×2 (08:20→19:55)
[2017-09-07] MEDS: Folic Acid 1 MG TAB PO SCH (08:20)
[2017-09-07] MEDS: Multivitamin W/ Minerals 1 TAB PO SCH (08:20)
--- NOTE | 2017-09-07 10:28 | PDOC.PN ---
- Subjective Encounter Start Date: 09/07/17 Encounter Start Time: 09:10 Patient seen and examined. No new complaints. No overnight events - Objective Resuscitation Status: Resuscitation Status FULL:Full Resuscitation MAR Reviewed: Yes Vital Signs & Weight: Vital Signs (12 hours) Temp Pulse Resp BP Pulse Ox 09/07/17 08:00 98.6 F 64 18 112/74 96 Weight Admit Weight 123 lb 3.2 oz Weight 123 lb 3.2 oz I&O: 09/06/17 09/07/17 09/08/17 06:59 06:59 06:59 Intake Total 780 180 Balance 780 180 Result Diagrams: 09/06/17 04:16 09/07/17 04:26 Phys Exam - Physical Examination Constitutional: NAD HEENT: PERRLA, moist MMs, sclera anicteric Neck: no JVD, supple Respiratory: no wheezing, no rales, no rhonchi Cardiovascular: RRR, no significant murmur, no rub Gastrointestinal: soft, non-tender, no distention Musculoskeletal: no edema, pulses present Neurological: non-focal, normal sensation, moves all 4 limbs Lymphatic: no nodes Psychiatric: normal affect, A&O x 3 Skin: no rash, normal turgor Dx/Plan (1) Acute alcoholic pancreatitis Code(s): K85.20 - ALCOHOL INDUCED ACUTE PANCREATITIS WITHOUT NECROSIS OR INFCT Status: Acute (2) Portal vein thrombosis Code(s): I81 - PORTAL VEIN THROMBOSIS Status: Acute (3) Alcohol abuse Code(s): F10.10 - ALCOHOL ABUSE, UNCOMPLICATED Status: Chronic (4) Macrocytic anemia Code(s): D53.9 - NUTRITIONAL ANEMIA, UNSPECIFIED Status: Chronic - Plan cont current plan of care * INR today 1.8, await to be therapeutic * medication reviewed as below * symptomatic treatment. * expecting discharge tomorrow Review of Systems - Review of Systems Constitutional: negative: fever, chills, sweats, weakness, malaise, other ENT: negative: Ear Pain, Ear Discharge, Nose Pain, Nose Discharge, Nose Congestion, Mouth Pain, Mouth Swelling, Throat Pain, Throat Swelling, Other Respiratory: negative: Cough, Dry, Shortness of Breath, Hemoptysis, SOB with Excertion, Pleuritic Pain, Sputum, Wheezing Cardiovascular: negative: chest pain, palpitations, orthopnea, paroxysmal nocturnal dyspnea, edema, light headedness, other Gastrointestinal: negative: Nausea, Vomiting, Abdominal Pain, Diarrhea, Constipation, Melena, Hematochezia, Other Genitourinary: negative: Dysuria, Frequency, Incontinence, Hematuria, Retention , Other Musculoskeletal: negative: Neck Pain, Shoulder Pain, Arm Pain, Back Pain, Hand Pain, Leg Pain, Foot Pain, Other Skin: negative: Rash, Lesions, Blue, Bruising, Other - Medications/Allergies Allergies/Adverse Reactions: Allergies Allergy/AdvReac Type Severity Reaction Status Date / Time No Known Allergies Allergy Unverified 08/30/17 09:46 Medications: Current Medications Acetaminophen (Tylenol) 650 mg PO Q4H PRN PRN Reason: Headache/Fever or Pain Hydrocodone Bitart/Acetaminophen ([place] 10/325) 1 tab PO Q4H PRN PRN Reason: Moderate Pain (4-6) Last Admin: 09/07/17 09:51 Dose: 1 tab Al Hydroxide/Mg Hydroxide (Maalox) 30 ml PO Q6H PRN PRN Reason: Heartburn or Indigestion Albuterol/Ipratropium (Duoneb) 3 ml NEB [id number] PRN PRN Reason: SOB &/or Wheezing Lipase/Protease/Amylase ([place] [id number]) 1 cap PO TID-WM [facility] Last Admin: 09/07/17 08:19 Dose: 1 cap Artificial Tears (Tears Naturale) 0 drop EA EYE PRN PRN PRN Reason: Dry Eyes Cyanocobalamin (Vitamin B-12) 1,000 mcg PO DAILY [facility] Last Admin: 09/07/17 08:19 Dose: 1,000 mcg Enoxaparin Sodium (Lovenox) 55 mg SC 0900,2100 [facility] Last Admin: 09/07/17 08:19 Dose: 55 mg Famotidine (Pepcid) 20 mg PO Q12HR [facility] Last Admin: 09/07/17 08:20 Dose: 20 mg Folic Acid (Folvite) 1 mg PO DAILY [facility] Last Admin: 09/07/17 08:20 Dose: 1 mg Guaifenesin (Robitussin Sf) 200 mg PO Q4H PRN PRN Reason: Cough Hydralazine HCl (Apresoline) 10 mg SLOW IVP Q4H PRN PRN Reason: Systolic BP > 180 Iron/Minerals/Multivitamins (Theragran M) 1 tab PO DAILY [facility] Last Admin: 09/07/17 08:20 Dose: 1 tab Loperamide HCl (Imodium) 2 mg PO PRN PRN PRN Reason: Diarrhea/Loose Stools Loratadine (Claritin) 10 mg PO DAILYPRN PRN PRN Reason: Sinus Symptoms Magnesium Hydroxide (Milk Of Magnesium) 30 ml PO DAILYPRN PRN PRN Reason: Constipation Mineral Oil/White Petrolatum (Eucerin Cream) 0 gm TOP BIDPRN PRN PRN Reason: Dry Skin Morphine Sulfate/Sodium Chloride (Morphine 0.9% Nacl/Pf 5 Mg/5 M) 4 mg SLOW IVP Q3H PRN PRN Reason: Pain 7-10 Last Admin: 09/01/17 16:46 Dose: 4 mg Ondansetron HCl (Zofran Odt) 4 mg PO Q6H PRN PRN Reason: Nausea/Vomiting Ondansetron HCl (Zofran) 4 mg IVP Q6H PRN PRN Reason: Nausea/Vomiting Last Admin: 08/30/17 19:53 Dose: 4 mg Phenol (Chloraseptic [place] 180 Ml Bot) 0 ml PO PRN PRN PRN Reason: Sore Throat Senna (Senokot) 2 tab PO HSPRN PRN PRN Reason: Constipation Sodium Chloride ([place] Nasal [place] 0.65%) 0 ml EA NARE QIDPRN PRN PRN Reason: Nasal Congestion Thiamine HCl (Thiamine) 100 mg PO DAILY [facility] Last Admin: 09/07/17 08:19 Dose: 100 mg Warfarin Sodium (Coumadin) 5 mg PO 1700 [facility] Last Admin: 09/06/17 18:03 Dose: 5 mg Zolpidem Tartrate (Ambien) 5 mg PO HSPRN PRN PRN Reason: Insomnia
[2017-09-07] MEDS: Ondansetron ODT 4 MG TAB PO PRN ×2 (13:44→19:02)
[2017-09-07] MEDS: Warfarin Sodium 5 MG TAB PO SCH (18:15)
[2017-09-07] MEDS: Ondansetron HCl/PF 4 MG/2 ML Vial IVP PRN (21:37)
[2017-09-07] MEDS: Morphine 4 MG/ML Carpuject SLOW IVP PRN (21:42)
[2017-09-07] MEDS ORDERED: Morphine 4 MG/ML Carpuject SLOW IVP SCH (23:24)
[2017-09-07] MEDS: Promethazine HCl 25 MG/ML VIAL IM/IV PRN (23:34)
[2017-09-08] MEDS: Morphine 4 MG/ML Carpuject SLOW IVP PRN ×5 (02:20→21:19)
[2017-09-08] MEDS: Ondansetron HCl/PF 4 MG/2 ML Vial IVP PRN ×2 (02:23→12:31)
[2017-09-08] MEDS: Mag-Al 1200 mg/1200 mg/30 ML UDCUP PO PRN ×2 (04:22→16:49)
[2017-09-08 04:47] LABS: Hemoglobin 14.1 g/dL (14.0-18.0); Platelet Count 442 thou/uL (130-400)
[2017-09-08 04:51] LABS: INR-International Normal Ratio 1.8; Prothrombin Time 21.4 SEC (12.0-14.7)
[2017-09-08 05:36] LABS: Calc. Creatinine Clearance 95 mL/min (70-130); Estimated GFR-MDRD Greater than 90
[2017-09-08] MEDS: Enoxaparin Sodium 60 MG/0.6 ML SYRINGE SC SCH ×2 (08:41→21:18)
[2017-09-08] MEDS: Promethazine HCl 25 MG/ML VIAL IM/IV PRN ×2 (08:47→16:36)
[2017-09-08] MEDS: Cyanocobalamin (Vitamin B-12) 1,000 MCG TAB PO SCH (08:51)
[2017-09-08] MEDS: Multivitamin W/ Minerals 1 TAB PO SCH (08:51)
[2017-09-08] MEDS: Folic Acid 1 MG TAB PO SCH (08:51)
[2017-09-08] MEDS: Pancrelipase DR 12000 1 CAP PO SCH ×3 (08:51→16:37)
[2017-09-08] MEDS: Famotidine 20 MG TAB PO SCH ×2 (08:51→21:19)
--- NOTE | 2017-09-08 10:27 | PDOC.PN ---
- Subjective Encounter Start Date: 09/08/17 Encounter Start Time: 07:40 yesterday pt ate high fate michellerito and now has vomiting and abdominal pain, INR has not changed - Objective Resuscitation Status: Resuscitation Status FULL:Full Resuscitation MAR Reviewed: Yes Vital Signs & Weight: Vital Signs (12 hours) Temp Pulse Resp BP Pulse Ox 09/08/17 08:00 98.9 F 112 H 16 159/93 H 99 Weight Admit Weight 123 lb 3.2 oz Weight 123 lb 3.2 oz I&O: 09/07/17 09/08/17 09/09/17 06:59 06:59 06:59 Intake Total 780 570 Output Total 400 Balance 780 170 Result Diagrams: 09/08/17 03:58 09/08/17 03:58 Phys Exam - Physical Examination Constitutional: NAD HEENT: PERRLA, moist MMs, sclera anicteric Neck: no JVD, supple Respiratory: no wheezing, no rales, no rhonchi Cardiovascular: RRR, no significant murmur, no rub Gastrointestinal: soft, no distention, positive bowel sounds tenderness+ Musculoskeletal: no edema, pulses present Neurological: non-focal, normal sensation, moves all 4 limbs Psychiatric: normal affect, A&O x 3 Skin: no rash, normal turgor Dx/Plan (1) Acute alcoholic pancreatitis Code(s): K85.20 - ALCOHOL INDUCED ACUTE PANCREATITIS WITHOUT NECROSIS OR INFCT Status: Acute (2) Portal vein thrombosis Code(s): I81 - PORTAL VEIN THROMBOSIS Status: Acute (3) Alcohol abuse Code(s): F10.10 - ALCOHOL ABUSE, UNCOMPLICATED Status: Chronic (4) Macrocytic anemia Code(s): D53.9 - NUTRITIONAL ANEMIA, UNSPECIFIED Status: Chronic - Plan cont current plan of care * dietary instruction given * advised low fate diet * medication reviewed as below * symptomatic treatment * continue to monitor today. Review of Systems - Review of Systems Constitutional: negative: fever, chills, sweats, weakness, malaise, other Eyes: negative: Pain, Vision Change, Conjunctivae Inflammation, Eyelid Inflammation, Redness, Other ENT: negative: Ear Pain, Ear Discharge, Nose Pain, Nose Discharge, Nose Congestion, Mouth Pain, Mouth Swelling, Throat Pain, Throat Swelling, Other Respiratory: negative: Cough, Dry, Shortness of Breath, Hemoptysis, SOB with Excertion, Pleuritic Pain, Sputum, Wheezing Cardiovascular: negative: chest pain, palpitations, orthopnea, paroxysmal nocturnal dyspnea, edema, light headedness, other Gastrointestinal: Nausea, Vomiting, Abdominal Pain. negative: Diarrhea, Constipation, Melena, Hematochezia, Other Genitourinary: negative: Dysuria, Frequency, Incontinence, Hematuria, Retention , Other Musculoskeletal: negative: Neck Pain, Shoulder Pain, Arm Pain, Back Pain, Hand Pain, Leg Pain, Foot Pain, Other Skin: negative: Rash, Lesions, Blue, Bruising, Other - Medications/Allergies Allergies/Adverse Reactions: Allergies Allergy/AdvReac Type Severity Reaction Status Date / Time No Known Allergies Allergy Unverified 08/30/17 09:46 Medications: Current Medications Acetaminophen (Tylenol) 650 mg PO Q4H PRN PRN Reason: Headache/Fever or Pain Hydrocodone Bitart/Acetaminophen ([place] 10/325) 1 tab PO Q4H PRN PRN Reason: Moderate Pain (4-6) Last Admin: 09/07/17 18:11 Dose: 1 tab Al Hydroxide/Mg Hydroxide (Maalox) 30 ml PO Q6H PRN PRN Reason: Heartburn or Indigestion Last Admin: 09/08/17 04:22 Dose: 30 ml Albuterol/Ipratropium (Duoneb) 3 ml NEB [id number] PRN PRN Reason: SOB &/or Wheezing Lipase/Protease/Amylase ([place] [address]) 1 cap PO TID-WM [facility] Last Admin: 09/08/17 08:51 Dose: Not Given Artificial Tears (Tears Naturale) 0 drop EA EYE PRN PRN PRN Reason: Dry Eyes Cyanocobalamin (Vitamin B-12) 1,000 mcg PO DAILY [facility] Last Admin: 09/08/17 08:51 Dose: Not Given Enoxaparin Sodium (Lovenox) 55 mg SC 0900,2100 [facility] Last Admin: 09/08/17 08:41 Dose: 55 mg Famotidine (Pepcid) 20 mg PO Q12HR [facility] Last Admin: 09/08/17 08:51 Dose: Not Given Folic Acid (Folvite) 1 mg PO DAILY [facility] Last Admin: 09/08/17 08:51 Dose: Not Given Guaifenesin (Robitussin Sf) 200 mg PO Q4H PRN PRN Reason: Cough Hydralazine HCl (Apresoline) 10 mg SLOW IVP Q4H PRN PRN Reason: Systolic BP > 180 Iron/Minerals/Multivitamins (Theragran M) 1 tab PO DAILY [facility] Last Admin: 09/08/17 08:51 Dose: Not Given Loperamide HCl (Imodium) 2 mg PO PRN PRN PRN Reason: Diarrhea/Loose Stools Loratadine (Claritin) 10 mg PO DAILYPRN PRN PRN Reason: Sinus Symptoms Magnesium Hydroxide (Milk Of Magnesium) 30 ml PO DAILYPRN PRN PRN Reason: Constipation Mineral Oil/White Petrolatum (Eucerin Cream) 0 gm TOP BIDPRN PRN PRN Reason: Dry Skin Morphine Sulfate (Morphine) 4 mg SLOW IVP Q3H PRN PRN Reason: Pain 7-10 Last Admin: 09/08/17 08:40 Dose: 4 mg Ondansetron HCl (Zofran Odt) 4 mg PO Q6H PRN PRN Reason: Nausea/Vomiting Last Admin: 09/07/17 19:02 Dose: 4 mg Ondansetron HCl (Zofran) 4 mg IVP Q6H PRN PRN Reason: Nausea/Vomiting Last Admin: 09/08/17 02:23 Dose: 4 mg Phenol (Chloraseptic [place] 180 Ml Bot) 0 ml PO PRN PRN PRN Reason: Sore Throat Promethazine HCl (Phenergan) 25 mg IM/IV Q6H PRN PRN Reason: Nausea/Vomiting Last Admin: 09/08/17 08:47 Dose: 25 mg Senna (Senokot) 2 tab PO HSPRN PRN PRN Reason: Constipation Sodium Chloride ([place] Nasal [place] 0.65%) 0 ml EA NARE QIDPRN PRN PRN Reason: Nasal Congestion Thiamine HCl (Thiamine) 100 mg PO DAILY [facility] Last Admin: 09/08/17 08:51 Dose: Not Given Warfarin Sodium (Coumadin) 5 mg PO 1700 [facility] Last Admin: 09/07/17 18:15 Dose: 5 mg Zolpidem Tartrate (Ambien) 5 mg PO HSPRN PRN PRN Reason: Insomnia
[2017-09-08] MEDS: Warfarin Sodium 5 MG TAB PO SCH (16:49)
[2017-09-09] MEDS: Morphine 4 MG/ML Carpuject SLOW IVP PRN ×3 (02:15→09:19)
[2017-09-09] MEDS: Promethazine HCl 25 MG/ML VIAL IM/IV PRN (02:16)
[2017-09-09 05:13] LABS: INR-International Normal Ratio 2.7; Prothrombin Time 29.5 SEC (12.0-14.7)
[2017-09-09 08:48] VITALS: BP 166/111; TEMP 98.9
[2017-09-09] MEDS: Enoxaparin Sodium 60 MG/0.6 ML SYRINGE SC SCH (09:20)
[2017-09-09] MEDS: Ondansetron HCl/PF 4 MG/2 ML Vial IVP PRN (09:20)
[2017-09-09] MEDS: Folic Acid 1 MG TAB PO SCH (09:25)
[2017-09-09] MEDS: Cyanocobalamin (Vitamin B-12) 1,000 MCG TAB PO SCH (09:25)
[2017-09-09] MEDS: Famotidine 20 MG TAB PO SCH (09:25)
[2017-09-09] MEDS: Multivitamin W/ Minerals 1 TAB PO SCH (09:25)
[2017-09-09] MEDS: Pancrelipase DR 12000 1 CAP PO SCH ×2 (09:25→13:07)
--- NOTE | 2017-09-09 11:14 | DIS ---
PRIMARY CARE PHYSICIAN: Berlin Cooper M.D. DATE OF ADMISSION: 08/30/2017 DATE OF DISCHARGE: 09/09/2017 DISCHARGE DISPOSITION: Home. PRIMARY DISCHARGE DIAGNOSES: 1. Acute alcoholic pancreatitis. 2. Portal vein thrombosis. SECONDARY DISCHARGE DIAGNOSES: 1. Alcoholism. 2. Macrocytic anemia. PRIMARY PROCEDURE/OPERATION: None. RADIOLOGICAL INVESTIGATION: Abdomen and pelvis CT scan showed findings suggestive of pancreatitis and portal vein thrombosis. SIGNIFICANT LABORATORY DATA: WBC 8.0, hemoglobin 14.1, platelets 442. INR 2.7. Sodium 138, creatinine 0.70, lipase 223. DISCHARGE MEDICATIONS: Tylenol #3 one or two tablets p.o. q.6 hourly p.r.n. for pain, vitamin B12 1000 mcg p.o. daily, Pepcid 20 mg p.o. b.i.d., multivitamin 1 tablet p.o. daily, Creon 1 capsule p.o. t.i.d. with meal, thiamine 100 mg p.o. daily, warfarin 2.5 mg p.o. daily. CONTRAINDICATIONS: None. CODE STATUS: FULL CODE. INPATIENT CONSULTANTS: Dr. Tam was following while in hospital. Dr. Kodak Whalen was consulted while in hospital. TEST RESULTS PENDING ON DISCHARGE: None. ALLERGIES: No known drug allergies. DISCHARGE PLAN: Post hospital, the patient will follow up with primary care physician in 1 week. The patient will have followup with [facility] in 1 week. HOSPITAL COURSE: A 47-year-old male with above mentioned medical problems who was admitted by me on 08/30/2017. Please see my HPI for further details. This patient was having acute abdominal epigastric pain and his clinical history was consistent with pancreatitis. We did CT of the abdomen and pelvis that also showed pancreatic inflammation. His lipase was also elevated. This patient has underlying history of chronic alcoholism and his pancreatitis was related with alcoholism. His lipid profile was normal. He was admitted to medical floor and he was treated in a standard fashion with n.p.o., pain control with narcotics. Upon improvement, we resumed low fat low cholesterol diet. Dietary instructions were given. When we did a CT abdomen and pelvis, we also found portal vein thrombosis and that is why Dr. Tam was consulted. Dr. Tam recommended hematologic consultation which was done and all agreed with anticoagulation therapy for 6 months with warfarin. He was given Lovenox and warfarin while in hospital. By the time of discharge, his INR was therapeutic. We have established [facility] followup within a week. This patient has component of chronic pancreatitis and that is why we started pancreatic enzyme supplement with diet. Overall, this patient is medically stable for discharge. All new medication prescriptions were given to him. We provided patient education about avoiding alcohol and alcohol rehabilitation program was also advised. All new medication prescriptions sent to his pharmacy. Overall, the patient is medically stable for discharge today. The patient is seen and examined at the bedside today. REVIEW OF SYSTEMS: Reviewed and negative with him. PHYSICAL EXAMINATION: VITAL SIGNS: Currently, temperature 98.9, pulse 108, respiratory rate 16, saturation 96%, blood pressure 166/111. Weight is 123 pounds. GENERAL: The patient is currently alert, awake, no acute distress. HEAD: Normocephalic, atraumatic. EYES: Pupils round, reactive to light. Extraocular muscles are intact. ENT: Oropharynx is within normal limits. Moist mucous membranes. No oral lesions. No pharyngeal erythema, no exudates. NECK: Supple. No JVD, no thyromegaly, no carotid bruits. No jugular venous distention. LUNGS: Clear. CARDIAC: S1 and S2 regular without any murmur. ABDOMEN: Soft and benign without any tenderness. EXTREMITIES: No edema. NEUROLOGIC: Nonfocal examination. The patient is medically stable for discharge today. Plan of care discussed with the patient. Dietary instructions given to the patient in detail. Total time spent on discharge day more than 30 minutes to process this discharge.. JASON
== END 2017-09-09 15:10 | disposition home or self-care (01) | DRG 441 ==
LOC: T4-B 09:21
PROVIDERS: ADMIT Internal Medicine; ATTEND Internal Medicine
DX: I81 Portal vein thrombosis (principal); K85.20 Alcohol induced acute pancreatitis without necrosis or infection; K86.0 Alcohol-induced chronic pancreatitis; F10.10 Alcohol abuse, uncomplicated; D64.9 Anemia, unspecified; F17.211 Nicotine dependence, cigarettes, in remission; F41.9 Anxiety disorder, unspecified; G89.29 Other chronic pain; M25.532 Pain in left wrist
CPT/HCPCS: 36415; 74177; 80048; 80053; 80061; 82565; 83690; 83735; 84100; 85014; 85018; 85025; 85049; 85610; 85730; 86140; 90471; 90732; G0009; J1650; J2270; J2405; J2550; J7042; J7620; Q0162; S0028